=== PATIENT | female | born 1950 | race Hispanic/Latino ===

== ENCOUNTER 2017-09-24 15:31 | Emergency (ER) | payer MEDICARE ==
[~2017-09-24 15:31] MED LIST: AMLO5TAB2 PO; ASPIRIN PO; ATOR10 PO; CLORTALIDONA PO; LEVO500T2 PO; METO50TA18 PO; PRAZ1CAP5 PO; TELM40TA5 PO; [UNRECOGNIZED DRUG - OTHER] PO
[2017-09-24] MEDS ORDERED: KETOROLAC TROMETHAMINE 15MG/ML ONE (15:59)
[2017-09-24] MEDS ORDERED: CYCLOBENZAPRINE HCL 10 MG TABLET ONE (15:59)
[2017-09-24 16:07] LABS: BASOPHILS % (AUTO) 1.1 % (0.0-5.0); HEMATOCRIT 40.6 % (36-48); LYMPHOCYTES % (AUTO) 20.1 % (21.0-51.0); MEAN CORPUSCULAR HGB CONC 34.4 g/dL (32.0-36.0); MEAN CORPUSCULAR VOLUME 93.2 fL (79-99); MONOCYTES % (AUTO) 8.8 % (3.0-13.0); PLATELET COUNT (AUTO) 325 K/uL (130-400); RED BLOOD CELL COUNT(AUTO) 4.36 MIL/uL (4.00-5.50); RED CELL DISTRIBUTION WIDTH 13.9 % (11.0-15.5); WHITE BLOOD COUNT (AUTO) 9.6 K/uL (4.8-10.8)
[2017-09-24 16:14] LABS: CREATININE 0.8 mg/dL (0.5-1.5); POTASSIUM 4.1 mmol/L (3.5-5.1)
[2017-09-24 16:16] LABS: INR 0.88 (0.85-1.15); PARTIAL THROMBOPLASTIN TIME 25.2 SEC (26.3-35.5); PROTHROMBIN TIME 9.3 SEC (9.6-11.6)
[2017-09-24 16:31] LABS: ALBUMIN 3.8 g/dL (3.5-5.0); BILIRUBIN,TOTAL 0.3 mg/dL (0.2-1.0); CREATINE KINASE MB 1.4 ng/mL (0.5-3.6); TOTAL PROTEIN, SERUM 8.2 g/dL (6.0-8.3)
== END 2017-09-24 18:55 | disposition home or self-care (01) ==
LOC: EDH 15:31
DX: S20.212A Contusion of left front wall of thorax, initial encounter (principal); S20.211A Contusion of right front wall of thorax, initial encounter; S80.02XA Contusion of left knee, initial encounter; I10 Essential (primary) hypertension; E11.9 Type 2 diabetes mellitus without complications; V49.49XA Driver injured in collision with other motor vehicles in traffic accident, initial encounter; Y93.89 Activity, other specified; Y92.89 Other specified places as the place of occurrence of the external cause; Y99.8 Other external cause status
CPT/HCPCS: 36415; 71045; 80053; 82550; 82553; 84484; 85025; 85610; 85730; 93005; 96374; 99285; J1885

== ENCOUNTER → 2020-04-04 | Outpatient (CLI) | payer MEDICARE, OTHER ==
[~2020-04-04] MED LIST changes: +AMLO-257 PO; -AMLO5TAB2 PO; -TELM40TA5 PO; +TELM40TA8 PO
== END | disposition home or self-care (01) ==
LOC: RAH 09:51
PROVIDERS: ATTEND Internal Medicine
DX: I08.3 Combined rheumatic disorders of mitral, aortic and tricuspid valves (principal); I10 Essential (primary) hypertension
CPT/HCPCS: 93306; 93356

== ENCOUNTER 2020-05-21 21:17 | Emergency (ER) | payer OTHER ==
[2020-05-21] MEDS ORDERED: LABETALOL HCL 5 MG/ML 20ML VIAL IV ONE (21:53)
[2020-05-21] MEDS ORDERED: ONDANSETRON HCL 4 MG/2 ML VIAL ONE (22:11)
[2020-05-21 22:27] LABS: BASOPHILS % (AUTO) 1.2 % (0.0-5.0); HEMATOCRIT 43.6 % (36-48); LYMPHOCYTES % (AUTO) 28.6 % (21.0-51.0); MEAN CORPUSCULAR HEMOGLOBIN 32.2 pg (27.0-33.0); MEAN CORPUSCULAR HGB CONC 33.7 g/dL (32.0-36.0); MEAN CORPUSCULAR VOLUME 95.6 fL (79-99); MONOCYTES % (AUTO) 9.9 % (3.0-13.0); NEUTROPHILS % (AUTO) 58.3 % (40.0-77.0); PLATELET COUNT (AUTO) 230 K/uL (130-400); RED BLOOD CELL COUNT(AUTO) 4.56 MIL/uL (4.00-5.50); RED CELL DISTRIBUTION WIDTH 14.1 % (11.0-15.5)
[2020-05-21 22:35] LABS: CREATININE 0.7 mg/dL (0.5-1.5); POTASSIUM 3.1 mmol/L (3.5-5.1)
[2020-05-21 22:38] LABS: B-TYPE NATRIURETIC PEPTIDE 73 pg/mL (0-100)
[2020-05-21 22:40] LABS: ALBUMIN 3.5 g/dL (3.5-5.0); BILIRUBIN,TOTAL 0.6 mg/dL (0.2-1.0); TOTAL PROTEIN, SERUM 7.3 g/dL (6.0-8.3)
[2020-05-21] MEDS ORDERED: POTASSIUM CHLORIDE 20 MEQ ERTAB PO ONE (23:58)
== END 2020-05-22 02:17 | disposition home or self-care (01) ==
LOC: EDH 21:17
DX: I10 Essential (primary) hypertension (principal); E11.9 Type 2 diabetes mellitus without complications
CPT/HCPCS: 36415; 70450; 71045; 80053; 83880; 84484; 85025; 93005; 96374; 96375; 99285; J2405; J3490

== ENCOUNTER 2022-01-05 10:56 | Observation (INO) | payer OTHER ==
[~2022-01-05] VITALS: Ht 149.9 cm; Wt 88.0 kg
[~2022-01-05 10:56] MED LIST changes: -AMLO-257 PO; -ASPIRIN PO; -ATOR10 PO; -CLORTALIDONA PO; -LEVO500T2 PO; -PRAZ1CAP5 PO; -TELM40TA8 PO; -[UNRECOGNIZED DRUG - OTHER] PO
[2022-01-05] MEDS ORDERED: OMEP40CA21 PO (11:26)
[2022-01-05] MEDS ORDERED: VALS320T16 PO (11:26)
[2022-01-05] MEDS ORDERED: ZOLP5TAB8 PO (11:26)
[2022-01-05] MEDS ORDERED: LEVE10006 PO (11:26)
[2022-01-05] MEDS ORDERED: ESCI-8 PO (11:26)
[2022-01-05] MEDS ORDERED: FLUO25PO10 PO (11:26)
[2022-01-05] MEDS ORDERED: ENAL10TA18 PO (11:26)
[2022-01-05] MEDS ORDERED: METF-444 PO (11:26)
[2022-01-05] MEDS ORDERED: ISOS20TA85 PO (11:26)
[2022-01-05 11:39] LABS: BASOPHILS % (AUTO) 0.4 % (0.0-5.0); EOSINOPHILS % (AUTO) 0.3 % (0.0-8.0); HEMATOCRIT 40.8 % (36-48); LYMPHOCYTES % (AUTO) 13.5 % (21.0-51.0); MEAN CORPUSCULAR HEMOGLOBIN 30.1 pg (27.0-33.0); MEAN CORPUSCULAR HGB CONC 32.1 g/dL (32.0-36.0); MEAN CORPUSCULAR VOLUME 93.8 fL (79-99); MONOCYTES % (AUTO) 4.8 % (3.0-13.0); NEUTROPHILS % (AUTO) 80.5 % (40.0-77.0); PLATELET COUNT (AUTO) 251 K/uL (130-400); RED BLOOD CELL COUNT(AUTO) 4.35 MIL/uL (4.00-5.50); RED CELL DISTRIBUTION WIDTH 13.4 % (11.0-15.5); WHITE BLOOD COUNT (AUTO) 9.3 K/uL (4.8-10.8)
[2022-01-05 11:52] LABS: CARBON DIOXIDE 30 mmol/L (21-32); CHLORIDE 104 mmol/L (101-111); CREATININE 0.6 mg/dL (0.5-1.5); GLOMERULAR FILTR. RATE CALC 105 mL/min (>60); GLUCOSE,RANDOM 149 mg/dL (70-105); POTASSIUM 4.3 mmol/L (3.5-5.1); SODIUM SERUM 138 mmol/L (136-145); UREA NITROGEN, BLOOD 19 mg/dL (7-18)
[2022-01-05 11:57] LABS: ALANINE AMINOTRANSFERASE 27 U/L (12-78); ALBUMIN 3.1 g/dL (3.5-5.0); ASPARTATE AMINOTRANSFERASE 23 U/L (10-37); TOTAL PROTEIN, SERUM 7.3 g/dL (6.0-8.3)
[2022-01-05 13:12] LABS: HEMATOCRIT 39.6 % (36-48); MEAN CORPUSCULAR HEMOGLOBIN 30.5 pg (27.0-33.0); MEAN CORPUSCULAR HGB CONC 32.8 g/dL (32.0-36.0); PLATELET COUNT (AUTO) 246 K/uL (130-400); RED BLOOD CELL COUNT(AUTO) 4.26 MIL/uL (4.00-5.50); RED CELL DISTRIBUTION WIDTH 13.5 % (11.0-15.5); WHITE BLOOD COUNT (AUTO) 9.6 K/uL (4.8-10.8)
[2022-01-05 13:20] LABS: APPEARANCE,URINE CLEAR (CLEAR); BILIRUBIN,URINE NEGATIVE (NEGATIVE); COLOR,URINE YELLOW (YELLOW); GLUCOSE, URINE (UA) NEGATIVE (NEGATIVE); KETONES,URINE NEGATIVE (NEGATIVE); LEUKOCYTE ESTERASE ,URINE NEGATIVE (NEGATIVE); NITRATE,URINE NEGATIVE (NEGATIVE); OCCULT BLOOD,URINE SMALL (NEGATIVE); PH,URINE 6.5 (5.0-8.0); PROTEIN,URINE 30 mg/dL (NEGATIVE); UROBILINOGEN,URINE 0.2 mg/dL (0.2-1.0)
[2022-01-05 13:26] LABS: BACTERIA,URINE Few /HPF (None Seen); RBC,URINE 0-1 /HPF (0-1); SQUAMOUS EPITHELIAL CELL,UR Few /HPF (0-2); WBC,URINE 0-1 /HPF (0-1)
[2022-01-05 13:36] LABS: LYMPHOCYTES % (MANUAL) 17 % (22-44); MAN.DIFF COMMENT-IMPRESSION MANUAL DIFFERENTIAL; MONOCYTES % (MANUAL) 2 % (2-9); PLATELET MORPHOLOGY COMMENT ADEQUATE; SEGMENTED NEUTROPHILS % 81 % (40-70)
[2022-01-05] MEDS ORDERED: FUROSEMIDE 40MG VIAL IV ONE (14:30)
[2022-01-05] MEDS ORDERED: DEXTROSE 50%-WATER 50 ML DISP.SYRIN IV PRN (16:00)
[2022-01-05] MEDS ORDERED: GLUCAGON 1MG KIT 1 MG ML IM PRN (16:00)
[2022-01-05] MEDS: CEFTRIAXONE 1G VIAL IVP SCH (16:26)
[2022-01-05] MEDS: PHARMACY COMMUNICATION MISC SCH ×2 (17:30→18:30)
[2022-01-05] MEDS ORDERED: HYDRALAZINE 20MG/ML VIAL IV PRN (18:00)
[2022-01-05] MEDS: IPRATROPIUM/ALBUTEROL SULFATE 3 ML SOLUTION IH SCH (18:30)
[2022-01-05] MEDS ORDERED: NON-FORMULARY MEDICATION 1 EACH (Levetiracetam 1,000 MG) PO SCH (21:00)
[2022-01-05] MEDS: SOLU-MEDROL 125MG VIAL IVP SCH (21:30)
[2022-01-05] MEDS: METOPROLOL TARTRATE 50 MG TAB PO SCH (21:30)
[2022-01-05] MEDS: Valsartan 320 MG PO SCH (21:30)
[2022-01-05] MEDS: LEVETIRACETAM 500 MG TABLET PO SCH (21:30)
[2022-01-05] MEDS: FUROSEMIDE 40MG VIAL IV SCH (21:30)
[2022-01-05] MEDS: ZOLPIDEM TARTRATE 5 MG TAB PO SCH (21:30)
[2022-01-05] MEDS: ISOSORBIDE MONONITRATE 20 MG TABLET PO SCH (21:30)
[2022-01-06] MEDS: IPRATROPIUM/ALBUTEROL SULFATE 3 ML SOLUTION IH SCH ×4 (01:04→16:48)
[2022-01-06 02:48] VITALS: BP 189/71
[2022-01-06 05:38] LABS: BASOPHILS % (AUTO) 0.4 % (0.0-5.0); HEMATOCRIT 41.7 % (36-48); LYMPHOCYTES % (AUTO) 18.3 % (21.0-51.0); MEAN CORPUSCULAR HEMOGLOBIN 30.4 pg (27.0-33.0); MEAN CORPUSCULAR HGB CONC 33.1 g/dL (32.0-36.0); MEAN CORPUSCULAR VOLUME 91.9 fL (79-99); NEUTROPHILS % (AUTO) 79.5 % (40.0-77.0); PLATELET COUNT (AUTO) 276 K/uL (130-400); RED BLOOD CELL COUNT(AUTO) 4.54 MIL/uL (4.00-5.50); RED CELL DISTRIBUTION WIDTH 13.8 % (11.0-15.5); WHITE BLOOD COUNT (AUTO) 7.7 K/uL (4.8-10.8)
[2022-01-06 06:13] LABS: ALBUMIN 3.2 g/dL (3.5-5.0); CREATININE 0.9 mg/dL (0.5-1.5); POTASSIUM 4.3 mmol/L (3.5-5.1); TOTAL PROTEIN, SERUM 7.7 g/dL (6.0-8.3)
[2022-01-06] MEDS: FUROSEMIDE 40MG VIAL IV SCH ×3 (06:46→22:00)
[2022-01-06 08:00] VITALS: BP 179/74
[2022-01-06] MEDS ORDERED: FLUOXETINE 20 MG PO SCH (09:00)
[2022-01-06] MEDS ORDERED: NON-FORMULARY MEDICATION 1 EACH (Escitalopram Oxalate 10 MG) PO SCH (09:00)
[2022-01-06] MEDS ORDERED: ESCITALOPRAM 10MG PO SCH (09:00)
[2022-01-06] MEDS: ENALAPRIL MALEATE 10 MG TABLET PO SCH (09:00)
[2022-01-06] MEDS ORDERED: NON-FORMULARY MEDICATION 1 EACH (Omeprazole 40 MG) PO SCH (09:00)
[2022-01-06] MEDS: LEVETIRACETAM 500 MG TABLET PO SCH ×2 (09:34→21:59)
[2022-01-06] MEDS: FLUOXETINE HCL 20 MG CAPSULE PO SCH (09:34)
[2022-01-06] MEDS: METFORMIN HCL 500 MG TABLET PO SCH (09:34)
[2022-01-06] MEDS: SOLU-MEDROL 125MG VIAL IVP SCH ×2 (09:34→22:00)
[2022-01-06] MEDS: ISOSORBIDE MONONITRATE 20 MG TABLET PO SCH ×2 (09:34→22:00)
[2022-01-06] MEDS: METOPROLOL TARTRATE 50 MG TAB PO SCH ×2 (09:35→21:59)
[2022-01-06] MEDS: PANTOPRAZOLE 40 MG TAB DR PO SCH (09:35)
[2022-01-06] MEDS: Valsartan 320 MG PO SCH ×3 (09:37→21:00)
[2022-01-06 11:46] VITALS: BP 153/71
[2022-01-06 16:00] VITALS: BP 126/55
[2022-01-06] MEDS: CEFTRIAXONE 1G VIAL IVP SCH (18:38)
[2022-01-06 19:49] VITALS: BP 121/42
[2022-01-06] MEDS: ZOLPIDEM TARTRATE 5 MG TAB PO SCH (22:00)
[2022-01-06 23:39] VITALS: BP 132/67
[2022-01-07 03:53] VITALS: BP 154/63
[2022-01-07 05:55] LABS: HEMATOCRIT 39.2 % (36-48); MEAN CORPUSCULAR HEMOGLOBIN 30.6 pg (27.0-33.0); MEAN CORPUSCULAR HGB CONC 33.2 g/dL (32.0-36.0); MEAN CORPUSCULAR VOLUME 92.2 fL (79-99); RED BLOOD CELL COUNT(AUTO) 4.25 MIL/uL (4.00-5.50); RED CELL DISTRIBUTION WIDTH 13.8 % (11.0-15.5)
[2022-01-07] MEDS: FUROSEMIDE 40MG VIAL IV SCH (06:09)
[2022-01-07 06:23] LABS: ALBUMIN 3.3 g/dL (3.5-5.0); TOTAL PROTEIN, SERUM 7.7 g/dL (6.0-8.3)
[2022-01-07] MEDS: IPRATROPIUM/ALBUTEROL SULFATE 3 ML SOLUTION IH SCH ×4 (06:36→23:29)
[2022-01-07 07:00] VITALS: BP 164/88
[2022-01-07] MEDS: Valsartan 320 MG PO SCH ×3 (09:00→21:00)
[2022-01-07] MEDS: ISOSORBIDE MONONITRATE 20 MG TABLET PO SCH ×2 (09:44→21:00)
[2022-01-07] MEDS: FUROSEMIDE 40 MG TABLET PO SCH ×2 (09:44→21:00)
[2022-01-07] MEDS: LEVETIRACETAM 500 MG TABLET PO SCH ×2 (09:44→21:00)
[2022-01-07] MEDS: FLUOXETINE HCL 20 MG CAPSULE PO SCH (09:45)
[2022-01-07] MEDS: METOPROLOL TARTRATE 50 MG TAB PO SCH ×2 (09:45→21:00)
[2022-01-07] MEDS: PANTOPRAZOLE 40 MG TAB DR PO SCH (09:45)
[2022-01-07] MEDS: SOLU-MEDROL 125MG VIAL IVP SCH ×2 (09:46→21:00)
[2022-01-07] MEDS: METFORMIN HCL 500 MG TABLET PO SCH (09:48)
[2022-01-07 10:00] VITALS: BP 141/57
[2022-01-07 12:00] VITALS: BP 134/52
[2022-01-07] MEDS: ENALAPRIL MALEATE 10 MG TABLET PO SCH (13:00)
[2022-01-07] MEDS: INSULIN HUMULIN R 100 UNIT/ML 3ML SQ SCH ×3 (13:08→21:00)
[2022-01-07] MEDS ORDERED: AMLODIPINE 5 MG TAB ONE (13:17)
[2022-01-07] MEDS: AMOX/CLAV 875/125MG TAB PO SCH (13:19)
[2022-01-07] MEDS: CEFTRIAXONE 1G VIAL IVP SCH (16:00)
[2022-01-07 16:21] VITALS: BP 141/57
[2022-01-07] MEDS: ZOLPIDEM TARTRATE 5 MG TAB PO SCH (21:00)
[2022-01-07 21:34] VITALS: BP 142/61
[2022-01-08 00:01] VITALS: BP 138/66
[2022-01-08] MEDS: AMOX/CLAV 875/125MG TAB PO SCH (00:12)
[2022-01-08 04:37] VITALS: BP 144/60
[2022-01-08] MEDS: IPRATROPIUM/ALBUTEROL SULFATE 3 ML SOLUTION IH SCH (06:28)
[2022-01-08] MEDS: INSULIN HUMULIN R 100 UNIT/ML 3ML SQ SCH (06:35)
[2022-01-08 07:00] VITALS: BP 147/80
[2022-01-08] MEDS: SOLU-MEDROL 125MG VIAL IVP SCH (08:37)
[2022-01-08] MEDS: Valsartan 320 MG PO SCH (08:38)
[2022-01-08] MEDS: METOPROLOL TARTRATE 50 MG TAB PO SCH (08:39)
[2022-01-08] MEDS: METFORMIN HCL 500 MG TABLET PO SCH (08:39)
[2022-01-08] MEDS: PANTOPRAZOLE 40 MG TAB DR PO SCH (08:39)
[2022-01-08] MEDS: LEVETIRACETAM 500 MG TABLET PO SCH (08:39)
[2022-01-08] MEDS: FUROSEMIDE 40 MG TABLET PO SCH (08:40)
[2022-01-08] MEDS: ISOSORBIDE MONONITRATE 20 MG TABLET PO SCH (08:41)
[2022-01-08] MEDS: FLUOXETINE HCL 20 MG CAPSULE PO SCH (08:41)
[2022-01-08] MEDS ORDERED: CITALOPRAM 20 MG TABLET PO SCH (09:00)
== END 2022-01-08 10:10 | disposition home or self-care (01) ==
LOC: EDH 10:56 → EDHIP 15:57 → 3BH 01-06 02:51
PROVIDERS: ADMIT Internal Medicine; ATTEND Internal Medicine
DX: G40.A09 Absence epileptic syndrome, not intractable, without status epilepticus (principal); Z20.822 Contact with and (suspected) exposure to COVID-19; J96.90 Respiratory failure, unspecified, unspecified whether with hypoxia or hypercapnia; J18.9 Pneumonia, unspecified organism; I11.0 Hypertensive heart disease with heart failure; I50.9 Heart failure, unspecified; E11.649 Type 2 diabetes mellitus with hypoglycemia without coma; E03.9 Hypothyroidism, unspecified; E78.00 Pure hypercholesterolemia, unspecified; F32.A Depression, unspecified; N39.0 Urinary tract infection, site not specified; Z79.899 Other long term (current) drug therapy
CPT/HCPCS: 96374; 96376 ×3; 96375; 99285; 84484 ×2; 80053 ×3; 83880; 85025 ×3; 82948 ×11; 81001; 36415 ×3; 87635; 71045; 93005 ×2; 94640 ×10; 94664; 71250; 96372; 85027; 93306; G0378 ×61; C9803; J2930 ×4; J7070; J0360; J0696 ×2; J1940 ×6

== ENCOUNTER 2022-12-20 17:30 | Emergency (ER) | payer BC, OTHER ==
[~2022-12-20] VITALS: Ht 157.5 cm; Wt 85.3 kg
[~2022-12-20 17:30] MED LIST changes: +ENAL-89 PO; +ESCI-8 PO; +FLUO25PO10 PO; +ISOS20TA85 PO; +LEVE10006 PO; +METF-444 PO; +OMEP40CA21 PO; +VALS320T16 PO; +ZOLP5TAB8 PO
[2022-12-20 18:26] LABS: BASOPHILS % (AUTO) 0.7 % (0.0-5.0); EOSINOPHILS % (AUTO) 2.7 % (0.0-8.0); HEMATOCRIT 41.5 % (36-48); LYMPHOCYTES % (AUTO) 22.6 % (21.0-51.0); MEAN CORPUSCULAR HEMOGLOBIN 31.4 pg (27.0-33.0); MEAN CORPUSCULAR HGB CONC 33.7 g/dL (32.0-36.0); MONOCYTES % (AUTO) 12.3 % (3.0-13.0); NEUTROPHILS % (AUTO) 60.4 % (40.0-77.0); PLATELET COUNT (AUTO) 199 K/uL (130-400); RED BLOOD CELL COUNT(AUTO) 4.46 MIL/uL (4.00-5.50); RED CELL DISTRIBUTION WIDTH 13.9 % (11.0-15.5); WHITE BLOOD COUNT (AUTO) 4.5 K/uL (4.8-10.8)
[2022-12-20] MEDS ORDERED: IPRATROPIUM/ALBUTEROL SULFATE 3 ML SOLUTION IH ONE (18:30)
[2022-12-20 18:35] LABS: CREATININE 0.6 mg/dL (0.5-1.5); POTASSIUM 3.8 mmol/L (3.5-5.1)
[2022-12-20 18:40] LABS: ALBUMIN 3.2 g/dL (3.5-5.0); TOTAL PROTEIN, SERUM 7.4 g/dL (6.0-8.3)
[2022-12-20] MEDS ORDERED: ACETAMINOPHEN 325 MG TAB ONE (18:41)
[2022-12-20] MEDS ORDERED: CLONIDINE HCL 0.1 MG TABLET PO ONE (19:00)
[2022-12-20] MEDS ORDERED: BENZ-39 PO (22:33)
[2022-12-20 22:36] VITALS: BP 154/63
== END 2022-12-20 22:51 | disposition home or self-care (01) ==
LOC: EDH 17:30
DX: R05.9 Cough, unspecified (principal); I10 Essential (primary) hypertension; E78.00 Pure hypercholesterolemia, unspecified; E66.9 Obesity, unspecified; E11.9 Type 2 diabetes mellitus without complications; Z79.84 Long term (current) use of oral hypoglycemic drugs; Z79.899 Other long term (current) drug therapy; Z68.34 Body mass index [BMI] 34.0-34.9, adult; Z20.822 Contact with and (suspected) exposure to COVID-19
CPT/HCPCS: 99284; 71045; 87635; 84484; 80053; 83880; 85025; 87804 ×2; 36415; 93005; 94640; C9803